=== PATIENT | female | born 1960 | race Caucasian/White ===

== ENCOUNTER 2018-02-23 14:41 | Emergency (ER) | payer SELFPAY ==
[~2018-02-23] VITALS: Ht 157.5 cm; Wt 127.0 kg
[2018-02-23 14:50] VITALS: Ht 157.5 cm; Wt 127.0 kg
[2018-02-23 17:07] LABS: microscopic required? NO
[2018-02-23 17:24] LABS: urine erythrocyte NEGATIVE (NEGATIVE)
[2018-02-23 17:29] VITALS: BP 134/78
== END 2018-02-23 17:29 | disposition home or self-care (01) ==
LOC: ED 14:41
PROVIDERS: Emergency Medicine
DX: B02.9 Zoster without complications (principal)